=== PATIENT | male | born 1955 | race Hispanic/Latino ===

== ENCOUNTER 2018-07-06 09:00 | Emergency (ER) | payer SELFPAY ==
[2018-07-06 09:06] VITALS: BP 179/106
--- NOTE | 2018-07-06 10:19 | Emergency Department Report ---
ED General Adult HPI - General Chief complaint: Sore Throat Stated complaint: THROAT PAIN Time Seen by Provider: 07/06/18 10:18 Source: patient Mode of arrival: Ambulatory Limitations: No Limitations - History of Present Illness Initial comments: 62-year-old male with a history of hypertension presents with a complaint of a bone being stuck in his throat. Patient states he's had this sensation of a bone being struck in his throat for the past 2 weeks. Patient states he was a turkey bone. Patient states he was able to intake by mouth this morning. Patient denies any vomiting. Patient complains of a hard cough as well. Patient denies any shortness of breath. Patient denies any fever. - Related Data Previous Rx's Medication Instructions Recorded Last Taken Type HYDROcodone/ACETAMINOPHEN [Lortab 15 ml PO Q8HR #473 solution 07/06/18 Unknown Rx 10 mg-300 mg per 15 ML ORAL LIQ] Allergies Allergy/AdvReac Type Severity Reaction Status Date / Time No Known Allergies Allergy Unverified 07/06/18 09:06 ED Review of Systems ROS: Stated complaint: THROAT PAIN Other details as noted in HPI Constitutional: denies: chills, fever Eyes: denies: eye pain, eye discharge, vision change ENT: throat pain Respiratory: denies: cough, shortness of breath, wheezing Cardiovascular: denies: chest pain, palpitations Endocrine: no symptoms reported Gastrointestinal: denies: abdominal pain, nausea, diarrhea Genitourinary: denies: urgency, dysuria Musculoskeletal: denies: back pain, joint swelling, arthralgia Skin: denies: rash, lesions Neurological: denies: headache, weakness, paresthesias Psychiatric: denies: anxiety, depression Hematological/Lymphatic: denies: easy bleeding, easy bruising ED Past Medical Hx - Past Medical History Hx Heart Attack/AMI: Yes (2017) - Surgical History Past Surgical History?: Yes Additional Surgical History: Hernia repair, cardiac cath 2017 - Social History Smoking Status: Current Every Day Smoker Substance Use Type: None - Medications Home Medications: Home Medications Medication Instructions Recorded Confirmed Last Taken Type HYDROcodone/ACETAMINOPHEN [Lortab 15 ml PO Q8HR #473 solution 07/06/18 Unknown Rx 10 mg-300 mg per 15 ML ORAL LIQ] ED Physical Exam - General Limitations: No Limitations General appearance: alert, other (uncomfortable; dehydrated) - Head Head exam: Present: atraumatic, normocephalic - Eye Eye exam: Present: normal appearance - ENT ENT exam: Present: mucous membranes moist - Neck Neck exam: Present: normal inspection - Respiratory Respiratory exam: Present: normal lung sounds bilaterally. Absent: respiratory distress - Cardiovascular Cardiovascular Exam: Present: regular rate, normal rhythm. Absent: systolic murmur, diastolic murmur, rubs, gallop - GI/Abdominal GI/Abdominal exam: Present: soft, normal bowel sounds - Rectal Rectal exam: Present: deferred - Extremities Exam Extremities exam: Present: normal inspection - Back Exam Back exam: Present: normal inspection - Neurological Exam Neurological exam: Present: alert, oriented X3 - Psychiatric Psychiatric exam: Present: normal affect, normal mood - Skin Skin exam: Present: warm, dry, intact, normal color. Absent: rash ED Course Vital Signs 07/06/18 07/06/18 07/06/18 09:05 11:55 11:58 Temperature 97.8 F 98.7 F Pulse Rate 80 88 Respiratory 18 20 20 Rate Blood Pressure 179/106 O2 Sat by Pulse 97 100 100 Oximetry ED Medical Decision Making - Medical Decision Making Patient able to tolerate liquid diet without complication. Patient has no obvious foreign bodies present. Patient to be given follow-up with gastroenterology as an outpatient will be given Lortab elixir to assist with pain. - Differential Diagnosis Foreign Body Ingestion; Dehydration; Anemia; Electrolyte Abnormality Critical care attestation.: If time is entered above; I have spent that time in minutes in the direct care of this critically ill patient, excluding procedure time. ED Disposition Clinical Impression: Foreign body, swallowed Disposition: DC- TO HOME OR SELFCARE Is pt being admited?: No Does the pt Need Aspirin: No Condition: Stable Prescriptions: HYDROcodone/ACETAMINOPHEN [Lortab 10 mg-300 mg per 15 ML ORAL LIQ] 15 ml PO Q8HR #473 solution Referrals: GREG VALDES MD [Staff Physician] - 3-5 Days DEWART MYCHAL YIP MD [Primary Care Provider] - 3-5 Days Time of Disposition: 12:43 Print Language: KINYARWANDA
--- NOTE | 2018-07-06 12:26 | Cat Scan Report ---
FINAL REPORT EXAM: CT NECK WO CON HISTORY: foreign body ingestion TECHNIQUE: CT of the neck without IV contrast. Coronal and sagittal reconstructed imaging provided. PRIORS: None currently available. FINDINGS: Nasopharynx: Nasopharyngeal tonsils are not enlarged. Oropharynx: [place] and lingual tonsils are not enlarged. Floor of the mouth is unremarkable. Pharynx: Epiglottis and aryepiglottic folds are unremarkable. Parapharyngeal soft tissues are unremar kable Larynx: True and false cords are symmetrical. No significant airway compromise. Vascular calcifications. No radiopaque foreign objects. Parotid glands demonstrate normal appearance. The submandibular glands are unremarkable. The thyroid gland is unremarkable. Partially imaged paranasal sinuses are unremarkable. Partially imaged temporal bones are unremarkable. There is cervical spondylosis. Partial images of the lungs are unremarkable. IMPRESSION: Evaluation limited by the lack of intravenous contrast. No radiopaque foreign objects.
== END 2018-07-06 13:16 | disposition home or self-care (01) ==
LOC: ED 09:00
DX: T17.228A Food in pharynx causing other injury, initial encounter (principal); F17.200 Nicotine dependence, unspecified, uncomplicated; X58.XXXA Exposure to other specified factors, initial encounter; Y93.89 Activity, other specified; Y92.89 Other specified places as the place of occurrence of the external cause; Y99.8 Other external cause status
CPT/HCPCS: 70490; 99283